=== PATIENT | female | born 1945 | race Caucasian/White ===

== ENCOUNTER 2016-12-07 13:14 | Emergency (ER) | payer OTHER, MEDICARE ==
--- NOTE | 2016-12-07 13:29 | PDOC ---
History of Present Illness - General Chief Complaint: Injury Stated Complaint: RT TOE,RT KNEE PAIN Time Seen by Provider: 12/07/16 13:21 History Source: Patient Exam Limitations: No Limitations - History of Present Illness Initial Comments: 12/07/16 13:29 12/07/16 13:29 This pt is a 71 yo F with a history of Lyme disease, h/o bilateral hip replacements who presents emergency department with a complaint of fall with knee pain, rib pain in the great toe pain. Patient states that she had a right hip replaced in April 2007. Her left hip was replaced in August of this year. She sustained a fall from standing height onto floors at the beginning of this month. She landed on her knees and hands. At that time she noted left cysts pain, left knee pain, right rib pain. She was not seen by her primary care physician time, but notes a gradual improvement in her symptoms. She still reports right rib pain which she rates 6/10, no radiation, worse with laying flat. Not associated with shortness of breath, cough, fever. Patient presents today because while in the shower yesterday she slipped and fell into the shower chair. She struck her right great toe, struck her right knee. No head trauma. PMH: Lyme disease PSH: Hip replacement Meds: Oxycodone, Valium ALL: Ibuprofen -- > left facial swelling Social: Denies alcohol drug or cigarette use GENERAL/CONSTITUTIONAL: No: fever, chills, weakness, loss of appetite. HEAD, EYES, EARS, NOSE AND THROAT: No: change in vision, ear pain, discharge, sore throat, throat swelling. CARDIOVASCULAR: No: chest pain, lightheadedness, palpitations, syncope RESPIRATORY: No: cough, shortness of breath, wheezing, hemoptysis, stridor. GASTROINTESTINAL: No: nausea, vomiting, diarrhea, abdominal cramping, rectal bleeding, constipation. GENITOURINARY: No: dysuria, hematuria, frequency, urgency, flank pain. MUSCULOSKELETAL: Yes: hip, joint pain No: back pain, neck pain SKIN: Yes: Lleft knee abrasion No: lesions, pallor, rash or easy bruising. NEUROLOGIC: No: headache, vertigo, paresthesias, weakness ENDOCRINE: No: unexplained weight gain or loss HEMATOLOGIC/LYMPHATIC: No: anemia, easy bleeding, swelling nodes. GENERAL: The patient is in no acute distress. HEAD: Normal with no signs of trauma. EYES: PERRLA, EOMI, sclera anicteric, conjunctiva clear. ENT: Ears normal, nares patent, oropharynx clear without exudates. Moist mucous membranes. NECK: Normal range of motion, supple without lymphadenopathy, JVD, or masses. LUNGS: Breath sounds equal, clear to auscultation bilaterally. No wheezes, and no crackles. HEART:Regular rate and rhythm, normal S1 and S2 without murmur, rub or gallop. ABDOMEN: Soft, nontender, normoactive bowel sounds. No guarding, no rebound. No masses palpable. EXTREMITIES: Normal range of motion, no edema. NEUROLOGICAL: Cranial nerves II through XII grossly intact. Normal speech. No focal neurological deficits. MUSCULOSKELETAL: (+) right great toe tender, no limitation in ROM Right ribs tender RIght knee tender, ROM limited due to pain SKIN: (+) bruising right great toe 12/07/16 13:45 12/08/16 08:43 Past History - Past Medical History Allergies/Adverse Reactions: Allergies Allergy/AdvReac Type Severity Reaction Status Date / Time ibuprofen [From Advil] Allergy Swelling Verified 12/07/16 13:16 Home Medications: Ambulatory Orders Diazepam 10 mg PO HS 12/07/16 Oxycodone HCl [Roxicodone] 5 mg PO PRN PRN 12/07/16 Oxycodone Sr [Oxycontin] 10 mg PO BID 12/07/16 Medical Decision Making - Medical Decision Making 12/07/16 13:50 WIll do x rays Pt already has pain medications Will re assess Xrays negative Will discharge to home Pt to follow up with PMD Hold PT tomorrow Will ask pt to continue taking her own pain medications as she has already done *DC/Admit/Observation/Transfer Diagnosis at time of Disposition: Injury of musculoskeletal system - Discharge Dispostion Disposition: HOME Condition at time of disposition: Stable Admit: No - Patient Instructions Printed Discharge Instructions: DI for Musculoskeletal Pain Additional Instructions: Thank you for coming in to the ER today Please follow up with your orthopedic physician and your primary care physician Please come back and see us if you have any additional concerns or complaints or new symptoms
[2016-12-07 13:40] VITALS: BP 137/88; PULSE 79; TEMP 98.6; BMI 24.7
== END 2016-12-07 15:57 | disposition home or self-care (01) ==
LOC: FER 13:14
DX: T07 Unspecified multiple injuries (principal); Z96.643 Presence of artificial hip joint, bilateral; A69.20 Lyme disease, unspecified; W18.39XA Other fall on same level, initial encounter; Y93.9 Activity, unspecified; Y92.9 Unspecified place or not applicable
CPT/HCPCS: 71020-TC; 71101-TC-RT; 73502-TC-LT; 73502-TC-RT; 73562-TC-RT; 73630-TC-RT; 99281-25

== ENCOUNTER 2021-12-09 14:37 | Emergency (ER) | payer OTHER, MEDICARE ==
[2021-12-09 14:53] VITALS: BP 139/81; PULSE 92; TEMP 98.8; BMI 22.6
[2021-12-09] MEDS ORDERED: DIPHTH,PERTUSS(ACELL),TET 0.5 ML DISP.SYRIN IM ONE (15:27)
[2021-12-09] MEDS ORDERED: ACETAMINOPHEN 325 MG TABLET (FP) PO ONE (15:49)
== END 2021-12-09 16:12 | disposition home or self-care (01) ==
LOC: JERFT 14:37
PROC: 0HQ0XZZ Repair Scalp Skin, External Approach (ICD-10-PCS; principal; 2021-12-09)
PROC: 3E0234Z Introduction of Serum, Toxoid and Vaccine into Muscle, Percutaneous Approach (ICD-10-PCS; 2021-12-09)
DX: S01.01XA Laceration without foreign body of scalp, initial encounter (principal)
CPT/HCPCS: 12001-25; 90471; 90715; 99284-25

== ENCOUNTER 2022-06-14 11:22 | Emergency (ER) | payer OTHER, MEDICARE ==
[2022-06-14 12:20] VITALS: BP 147/79; PULSE 79; RESP 19; TEMP 97.9; BMI 19.7
== END 2022-06-14 14:48 | disposition home or self-care (01) ==
LOC: JERFT 11:22
DX: S02.0XXA Fracture of vault of skull, initial encounter for closed fracture (principal); W20.8XXA Other cause of strike by thrown, projected or falling object, initial encounter
CPT/HCPCS: 70450-TC; 70486-TC; 72125-TC; 99285-25

== ENCOUNTER 2023-08-24 06:04 | Emergency (ER) | payer OTHER, MEDICARE ==
[2023-08-24 06:13] VITALS: BP 152/86; PULSE 89; RESP 18; TEMP 97.6; BMI 20.9
[2023-08-24 07:30] LABS: INR 0.95 (0.83-1.09)
[2023-08-24 07:33] LABS: ACTIVATED PTT 28.3 SECONDS (25.2-36.5)
[2023-08-24 07:46] LABS: BASO % 0.6 % (0-2.0); EOS % 1.9 % (0-4.5); HEMATOCRIT 37.2 % (32.4-45.2); HEMOGLOBIN 12.2 GM/dL (10.7-15.3); LYMPH % 25.3 % (8-40); MCH 31.8 pg (25.7-33.7); MCHC 32.9 g/dl (32.0-36.0); MEAN CELL VOLUME 96.4 fl (80-96); MEAN PLT VOLUME 7.7 fl (7.5-11.1); MONO % 8.2 % (3.8-10.2); PLATELET COUNT 235 10^3/uL (134-434); RBC 3.85 M/mm3 (3.60-5.2); RDW 14.6 % (11.6-15.6); WHITE BLOOD COUNT 4.6 K/mm3 (4.0-10.0)
[2023-08-24 07:51] LABS: POTASSIUM 3.9 mmol/L (3.5-5.1)
[2023-08-24 07:53] LABS: CALCIUM 8.8 mg/dL (8.5-10.1)
[2023-08-24 07:54] LABS: ALBUMIN 3.7 g/dl (3.4-5.0); BLOOD UREA NITROGEN 20.3 mg/dL (7-18)
[2023-08-24 07:57] LABS: CREATININE 0.8 mg/dL (0.55-1.3)
[2023-08-24 07:58] LABS: BILIRUBIN,TOTAL 0.4 mg/dL (0.2-1)
[2023-08-24 07:59] LABS: TOT PROT 6.4 g/dl (6.4-8.2)
== END 2023-08-24 09:30 | disposition home or self-care (01) ==
LOC: JER 06:04
DX: R04.0 Epistaxis (principal)
CPT/HCPCS: 36415; 80053; 85025; 85610; 85730; 99283-25

== ENCOUNTER 2024-07-19 19:59 | Inpatient (IN) | payer OTHER, MEDICARE ==
[2024-07-19] MEDS ORDERED: HALOPERIDOL LACTATE 5 MG/ML ONE (22:00)
[2024-07-19] MEDS: HALOPERIDOL LACTATE 5 MG/ML IM ONE (22:08)
[2024-07-19 23:40] LABS: BASO % 0.4 % (0-2.0); EOS % 0.4 % (0-4.5); HEMATOCRIT 36.2 % (32.4-45.2); HEMOGLOBIN 11.6 GM/dL (10.7-15.3); LYMPH % 14.4 % (8-40); MCH 29.6 pg (25.7-33.7); MEAN CELL VOLUME 92.5 fl (80-96); MEAN PLT VOLUME 8.5 fl (7.5-11.1); MONO % 5.2 % (3.8-10.2); NEUT % 79.6 % (42.8-82.8); PLATELET COUNT 285 10^3/uL (134-434); RBC 3.92 M/mm3 (3.60-5.2); RDW 18.5 % (11.6-15.6); WHITE BLOOD COUNT 7.5 K/mm3 (4.0-10.0)
[2024-07-20 00:37] LABS: POTASSIUM 3.6 mmol/L (3.5-5.1)
[2024-07-20 00:43] LABS: ALBUMIN 3.9 g/dl (3.4-5.0); BLOOD UREA NITROGEN 18.4 mg/dL (7-18); CALCIUM 9.3 mg/dL (8.5-10.1)
[2024-07-20 00:45] LABS: BILIRUBIN,TOTAL 0.3 mg/dL (0.2-1)
[2024-07-20] MEDS ORDERED: HALOPERIDOL LACTATE 5 MG/ML ONE (00:45)
[2024-07-20 00:47] LABS: CREATININE 1.2 mg/dL (0.55-1.3)
[2024-07-20 00:49] LABS: TOT PROT 7.2 g/dl (6.4-8.2)
[2024-07-20] MEDS: HALOPERIDOL LACTATE 5 MG/ML IM ONE (00:55)
[2024-07-20] MEDS ORDERED: ACETAMINOPHEN INJECTION 100 ML ONE (00:58)
[2024-07-20] MEDS: ACETAMINOPHEN 1000 MG/100 ML BAG IVPB ONE (01:02)
[2024-07-20 01:14] LABS: URINE APPEARANCE CLEAR; URINE BILIRUBIN NEGATIVE (NEGATIVE); URINE COLOR YELLOW; URINE GLUCOSE (UA) NEGATIVE (NEGATIVE); URINE KETONE 2+ (NEGATIVE); URINE LEUK ESTERASE TRACE (NEGATIVE); URINE NITRITE NEGATIVE (NEGATIVE); URINE PROTEIN NEGATIVE (NEGATIVE); URINE UROBILINOGEN 0.2 mg/dL (0.2-1.0)
[2024-07-20] MEDS: LEVOTHYROXINE NA 88 MCG TABLET (FP) PO SCH (06:46)
[2024-07-20] MEDS ORDERED: SODIUM CHLORIDE 1,000 ML IV SCH (07:30)
[2024-07-20 08:31] LABS: URINE RBC 3.9 /uL (0-23.9); URINE WBC 15.4 /uL (0-25.8)
[2024-07-20 08:32] LABS: EPI CELLS 4.7 /uL (0-25.1); HYALINE CASTS 0.13 /uL (0-3.1); URINE BACTERIA 7.5 /uL (0-1359)
[2024-07-20 09:34] LABS: BASO % 0.4 % (0-2.0); EOS % 0.8 % (0-4.5); HEMATOCRIT 33.1 % (32.4-45.2); HEMOGLOBIN 10.9 GM/dL (10.7-15.3); LYMPH % 17.5 % (8-40); MCH 30.1 pg (25.7-33.7); MCHC 33.1 g/dl (32.0-36.0); MEAN PLT VOLUME 8.7 fl (7.5-11.1); MONO % 7.9 % (3.8-10.2); NEUT % 73.4 % (42.8-82.8); PLATELET COUNT 266 10^3/uL (134-434); RBC 3.64 M/mm3 (3.60-5.2); RDW 18.6 % (11.6-15.6); WHITE BLOOD COUNT 5.4 K/mm3 (4.0-10.0)
[2024-07-20] MEDS: HEPARIN NA (PORCINE) 5,000 UNITS/ML 1ML VIAL SQ SCH (10:17)
[2024-07-20] MEDS: MEMANTINE HCL 10 MG TABLET (FP) PO SCH (10:18)
[2024-07-20] MEDS: ANASTROZOLE 1 MG TABLET PO SCH (10:24)
[2024-07-20 13:42] LABS: BLOOD UREA NITROGEN 14.4 mg/dL (7-18); CALCIUM 9.3 mg/dL (8.5-10.1); POTASSIUM 3.3 mmol/L (3.5-5.1)
[2024-07-20 14:47] LABS: ARTERIAL BLD GAS O2 SATURATION 98.5 % (95-98); ARTERIAL BLOOD GAS BASE EXCESS -4.7 mmol/L (-2-2); ARTERIAL BLOOD GAS PO2 121.3 mmHg (80-100); ARTERIAL BLOOD GAS pH 7.433 (7.350-7.450)
[2024-07-20 14:52] LABS: ALLENS TEST POSITIVE
[2024-07-20] MEDS: POTASSIUM CHLORIDE ORAL LIQUID 20 MEQ/15 ML PO ONE (17:33)
[2024-07-20] MEDS: diazePAM 5 MG TABLET PO SCH (22:53)
[2024-07-20] MEDS: DONEPEZIL HCL 5 MG TABLET (FP) PO SCH (22:54)
[2024-07-21 10:03] LABS: POTASSIUM 3.3 mmol/L (3.5-5.1)
[2024-07-21 10:51] LABS: BLOOD UREA NITROGEN 11.6 mg/dL (7-18)
[2024-07-21 10:53] LABS: CALCIUM 9.1 mg/dL (8.5-10.1)
[2024-07-21 10:54] LABS: MAGNESIUM 2.3 mg/dL (1.8-2.4)
[2024-07-21 10:55] LABS: CREATININE 0.8 mg/dL (0.55-1.3); PHOSPHOROUS 2.8 mg/dL (2.5-4.9)
[2024-07-21] MEDS: POTASSIUM CHLORIDE ORAL LIQUID 20 MEQ/15 ML PO ONE (13:05)
[2024-07-21] MEDS: ACETAMINOPHEN 500 MG TABLET (FP) PO ONE (21:23)
[2024-07-21] MEDS: MELATONIN 5 MG TABLETS PO ONE (22:50)
[2024-07-22] MEDS: POTASSIUM CHLORIDE TABS 20 MEQ TABLET.ER (FP) PO SCH (09:06)
[2024-07-22] MEDS: POTASSIUM CHLORIDE ORAL LIQUID 20 MEQ/15 ML PO ONE (17:06)
[2024-07-22] MEDS: POLYETHYLENE GLYCOL (HEALTHYLAX) 3350 17 GM PACKET PO SCH (22:17)
[2024-07-23] MEDS: ACETAMINOPHEN 325 MG TABLET (FP) PO ONE (05:13)
[2024-07-23] MEDS ORDERED: INSULIN ASPART SLIDING SCALE (NOVOLOG) 1 VIAL SQ ONE (06:44)
[2024-07-23 09:49] LABS: HEMATOCRIT 31.7 % (32.4-45.2); HEMOGLOBIN 10.6 GM/dL (10.7-15.3); MCH 30.4 pg (25.7-33.7); MCHC 33.4 g/dl (32.0-36.0); MEAN PLT VOLUME 8.8 fl (7.5-11.1); PLATELET COUNT 253 10^3/uL (134-434); RBC 3.48 M/mm3 (3.60-5.2); RDW 18.6 % (11.6-15.6); WHITE BLOOD COUNT 3.5 K/mm3 (4.0-10.0)
[2024-07-23 10:02] LABS: POTASSIUM 4.6 mmol/L (3.5-5.1)
[2024-07-23 10:22] LABS: BLOOD UREA NITROGEN 8.8 mg/dL (7-18); MAGNESIUM 2.5 mg/dL (1.8-2.4)
[2024-07-23 10:25] LABS: CREATININE 0.6 mg/dL (0.55-1.3)
[2024-07-23] MEDS: ACETAMINOPHEN 325 MG TABLET (FP) PO PRN (21:41)
[2024-07-23] MEDS: ACETAMINOPHEN 1000 MG/100 ML BAG IVPB ONE (22:26)
[2024-07-24] MEDS: LIDOCAINE 4% PATCH TP SCH (09:34)
[2024-07-24] MEDS: LIDOCAINE PATCH REMOVAL MC SCH (22:15)
[2024-07-28] MEDS: amLODIPine BESYLATE 2.5 MG TABLET (FP) PO SCH (10:09)
[2024-07-29] MEDS: ACETAMINOPHEN 325 MG TABLET (FP) PO SCH (14:19)
[2024-08-01 16:19] LABS: BASO % 0.8 % (0-2.0); EOS % 0.8 % (0-4.5); HEMATOCRIT 31.7 % (32.4-45.2); HEMOGLOBIN 10.3 GM/dL (10.7-15.3); LYMPH % 21.7 % (8-40); MCHC 32.6 g/dl (32.0-36.0); MEAN CELL VOLUME 92.3 fl (80-96); MEAN PLT VOLUME 8.1 fl (7.5-11.1); MONO % 9.2 % (3.8-10.2); NEUT % 67.5 % (42.8-82.8); PLATELET COUNT 343 10^3/uL (134-434); RBC 3.44 M/mm3 (3.60-5.2); RDW 18.7 % (11.6-15.6)
[2024-08-01 16:51] LABS: POTASSIUM 4.4 mmol/L (3.5-5.1)
[2024-08-01 16:53] LABS: CALCIUM 9.3 mg/dL (8.5-10.1)
[2024-08-01 16:54] LABS: ALBUMIN 3.4 g/dl (3.4-5.0); BLOOD UREA NITROGEN 23.6 mg/dL (7-18); MAGNESIUM 2.7 mg/dL (1.8-2.4)
[2024-08-01 16:57] LABS: CREATININE 0.8 mg/dL (0.55-1.3); PHOSPHOROUS 4.7 mg/dL (2.5-4.9)
[2024-08-01 16:58] LABS: BILIRUBIN,TOTAL 0.2 mg/dL (0.2-1); TOT PROT 6.2 g/dl (6.4-8.2)
[2024-08-07 23:42] VITALS: BMI 21.1
[2024-08-10 10:36] VITALS: RESP 18
[2024-08-11 14:38] VITALS: BP 133/85; PULSE 77; TEMP 98.2
== END 2024-08-11 15:03 | DRG 884 ==
LOC: JER 19:59 → JERBED 21:35 → J6S 07-20 02:19
PROVIDERS: ADMIT Internal Medicine; ATTEND Internal Medicine
DX: F03.90 Unspecified dementia, unspecified severity, without behavioral disturbance, psychotic disturbance, mood disturbance, and anxiety (principal); F13.20 Sedative, hypnotic or anxiolytic dependence, uncomplicated; Z78.9 Other specified health status; E03.9 Hypothyroidism, unspecified; Z85.3 Personal history of malignant neoplasm of breast; E87.6 Hypokalemia; L89.151 Pressure ulcer of sacral region, stage 1; K59.00 Constipation, unspecified
CPT/HCPCS: 36415; 36600; 71046-TC-FY; 80048; 80053; 81003; 82803; 83735; 84100; 84484; 85025; 85027; 87086; 87186; 93005; 93010; 97116-GP; 97162-GP; 99285-25; J0131; J1644